=== PATIENT | male | born 1955 | race Caucasian/White ===

== ENCOUNTER → 2018-10-04 12:55 | Outpatient (CLI) | payer OTHER, SELFPAY ==
--- NOTE | 2018-10-14 07:19 | PM.PFT.1 ---
Pulmonary Function Test Referral & Results Date Patient Seen: 10/04/18 Requesting provider: Latrell Delvalle Results: The spirometry demonstrates an FVC of 3.30 L which is 65% of predicted. The FEV1 was measured at 2.46 L which is 65% of predicted. The FEV1/FVC ratio was 70 for which is 99% of predicted. Following the administration of bronchodilator there was no appreciable change. Lung volumes show an SVC of 3.54 L which is 70% of predicted. The diffusing capacity was measured at 23.87 which is 68% of predicted. No hemoglobin value was provided, so no correction for potential anemia could be made, if appropriate. The maximum voluntary ventilation was normal Interpretation: This study demonstrates mild obstructive lung disease based on reduction in FEV1 without evidence of benefit following bronchodilator administration There is also mild restrictive lung disease present based on reduction in lung volumes Diffusing capacity is reduced as well less patient is anemic as above. This suggests some element of disease at the capillary alveolar level.
== END ==
PROVIDERS: PCP Family Medicine Geriatric Medicine; Visit Provider Internal Medicine Cardiovascular Disease
DX: Z51.81 Encounter for therapeutic drug level monitoring (principal); Z79.899 Other long term (current) drug therapy
CPT/HCPCS: 94060; 94726; 94729